=== PATIENT | male | born 1955 | race Caucasian/White ===

== ENCOUNTER 2020-03-23 17:00 | Inpatient (IN) | payer SELFPAY ==
[~2020-03-23] VITALS: Ht 182.9 cm; Wt 99.0 kg
[2020-03-23] VITALS (227 sets, daily range): BP systolic 130–142; BP diastolic 88–103; PULSE 82–92; TEMP 98.1; O2SAT 80–99
[~2020-03-23 17:00] MED LIST: NO HOME MEDICATIONS; PERCOCET 5/321 UDTAB PO
--- NOTE | 2020-03-23 18:36 | NUR ---
Admission assessment completed, alert/oriented, vital signs stable, denies pain or discomfort, stated at [place] when his heart became "slow" he felt a little dizzy/ upon arrival here his heart rate is 70's-80's and still in A/fib, reports he has been feeling more tired lately and was getting SOA with activity and decided to come get checked out, denies any recent travel or sick contacts, denies feeling sick or having a fever, denies any history of arrythmias, stated he was told he has a "minor heart attack" 40 years ago but does not know if he had a heart cath or stress test etc., he reports family history of HTN and stated does not eat the most healthy diet, lungs are CTA/ no resp.difficulty noted at rest, does have some BLE 1+ edema and BNP was elevated on labwork from [place], CT chest done at [facility] and showed pleural effussions and some cardiomegaly, I have notified hospitalist of his arrival to ICU 6, patient denies other needs at this time, we will continue to monitor
[2020-03-23 19:46] LABS: MUCOUS Present /lpf; PH 5 (5-8); SQUAMOUS EPITHELIAL None Seen /hpf; URINE APPEARANCE Clear; URINE BACTERIA None Seen /hpf; URINE BILIRUBIN Negative (NEGATIVE); URINE BLOOD 1+ (NEGATIVE); URINE COLOR Yellow; URINE GLUCOSE Negative (NEGATIVE); URINE KETONE Negative (NEGATIVE); URINE LEUKOCYTE ESTERASE Negative (NEGATIVE); URINE NITRATE Negative (NEGATIVE); URINE PROTEIN(semi-quant) Negative (NEGATIVE); URINE RBC 0-2 /hpf; URINE UROBILINOGEN Negative (NEGATIVE)
[2020-03-23 19:50] LABS: COLLECTION METHOD CLEAN CATCH
--- NOTE | 2020-03-23 22:37 | NUR ---
Oxygen applied at 2114 d/t SpO2 dropping to 88%. Patient states he can feel when he is trying to fall asleep that his lungs "aren't quite clear". Patient accepting of plan of care and use of oxygen throughout the night. 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 O2 at 2LPM via [place]
[2020-03-24] VITALS (442 sets, daily range): BP systolic 130–150; BP diastolic 88–113; PULSE 86–114; TEMP 97.6–98.1; O2SAT 81–100
[2020-03-24 06:25] LABS: ALBUMIN 3.5 gm/dL (3.5-5.0); BILIRUBIN,TOTAL 0.9 mg/dL (0.0-1.0); CALCIUM 8.8 mg/dL (8.4-10.2); CHOLESTEROL RISK RATIO 3.8; CREATININE, serum 0.83 (0.66-1.25); MAGNESIUM 2.1 mg/dL (1.6-2.3); POTASSIUM 4.4 mmol/L (3.4-5.0); TOTAL PROTEIN 6.2 gm/dL (6.4-8.2)
[2020-03-24 06:28] LABS: BASO % 0.4 % (0.0-2.0); EOS # 0.1 (0.0-0.7); EOS % 1.2 % (0-4.0); GRAN % 65.1 % (42.2-75.2); HEMATOCRIT 44.3 % (42.0-52.0); HEMOGLOBIN 14.9 g/dl (13.5-18.0); LYMPH # 2.4 (1.2-3.4); LYMPH % 25.6 % (20.0-51.0); MEAN CELL VOLUME 97 fl (80.0-100.0); MEAN CORPUSCULAR HEMOGLOBIN 33 pg (27.0-31.0); MEAN CORPUSCULAR HGB CONC 34 g/dl (33.0-37.0); MEAN PLATELET VOLUME 11.7 fl (7.4-10.4); MONO # 0.6 (0.1-0.6); PLATELET COUNT 142 K/mm3 (130-400); RED BLOOD COUNT 4.56 M/mm3 (4.20-5.60); REDCELL DISTRIBUTION WIDTH-CV 14.6 % (11.5-14.5)
[2020-03-24 06:40] LABS: TROPONIN-I 0.054 ng/mL (0.000-0.035)
[2020-03-24 06:42] LABS: PROTHROMBIN TIME 11.8 SECONDS (9.7-12.8)
[2020-03-24 06:45] LABS: PARTIAL THROMBOPLASTIN TIME 29.3 SECONDS (26.0-37.0)
--- NOTE | 2020-03-24 08:26 | NUR ---
Report received from Annabelle ACOSTA and care resumed.
--- NOTE | 2020-03-24 09:45 | NUR ---
ERIC met with the patient to discuss discharge plan. The patient lives alone in [place]. His , Louann ([id number]#[phone]), lives in a different house in [place]. She is aware that he is here. The patient reports independence with ADLs and does not have any DME. The patient does not have a PCP. He is self pay. Financial Counseling has been consulted and plans to do a Financial Assistance Application with the patient. He receives his medications at [facility] or [facility]. He has not been taking any medications, so he states he is unaware if he would have any diffculties affording his meds. He works at [employer]. ERIC discussed getting set up with a PCP or clinic for primary care. The patient preferred getting set up at the [facility]. ERIC contacted Rosario at [facility] and provided her with the patient's information. Rosario reports that they have to do a questionnaire with the patient and that she will be contacting him within the next couple of days to do this. She states they cannot set up an appointment for him until two physicians sign off on it. ERIC informed the patient of this. The patient does not have advanced directives completed. The patient plans to return home upon discharge. ERIC contacted and updated the patient's . SW to continue to follow.
--- NOTE | 2020-03-24 14:11 | NUR ---
Dr Diego in to see pt at this time.
--- NOTE | 2020-03-24 17:15 | NUR ---
Patient transfered to room 14, report recieved.
--- NOTE | 2020-03-24 18:27 | NUR ---
Patient doing well, eating dinner at this time. Denies further needs at this time. Will report off to shift supervisor.
[2020-03-25] VITALS (166 sets, daily range): BP systolic 116–138; BP diastolic 73–99; PULSE 19–97; TEMP 97.5–98.6; O2SAT 53–100
[2020-03-25 05:26] LABS: BASO % 0.4 % (0.0-2.0); EOS # 0.1 (0.0-0.7); EOS % 0.9 % (0-4.0); GRAN # 6.2 (1.4-6.5); GRAN % 72.9 % (42.2-75.2); HEMATOCRIT 43.4 % (42.0-52.0); HEMOGLOBIN 14.5 g/dl (13.5-18.0); LYMPH # 1.6 (1.2-3.4); LYMPH % 18.6 % (20.0-51.0); MEAN CELL VOLUME 99 fl (80.0-100.0); MEAN CORPUSCULAR HEMOGLOBIN 33 pg (27.0-31.0); MEAN CORPUSCULAR HGB CONC 33 g/dl (33.0-37.0); MEAN PLATELET VOLUME 11.8 fl (7.4-10.4); MONO # 0.6 (0.1-0.6); MONO % 6.8 % (1.7-9.3); PLATELET COUNT 160 K/mm3 (130-400); RED BLOOD COUNT 4.39 M/mm3 (4.20-5.60); REDCELL DISTRIBUTION WIDTH-CV 14.6 % (11.5-14.5)
[2020-03-25 05:41] LABS: ALBUMIN 3.5 gm/dL (3.5-5.0); BILIRUBIN,TOTAL 0.7 mg/dL (0.0-1.0); CALCIUM 9.1 mg/dL (8.4-10.2); CREATININE, serum 0.99 (0.66-1.25); POTASSIUM 3.9 mmol/L (3.4-5.0); TOTAL PROTEIN 6.1 gm/dL (6.4-8.2)
--- NOTE | 2020-03-25 14:21 | NUR ---
Pt watching tv in bed. No complaints at this time. Call light in reach.
--- NOTE | 2020-03-25 15:51 | NUR ---
Pt positive COVID. Notified Dr Rivers of results. Updated pt on lab results. Vitals signs stable. Pt remains in AFib 90-100s. Pt has no complaints at this time. Call light in reach.
--- NOTE | 2020-03-25 19:30 | NUR ---
Report given to KARLA Mora.
[2020-03-26] VITALS: BP 128/92; PULSE 18
[2020-03-26 04:00] VITALS: BP 113/90; PULSE 86; TEMP 97.5
--- NOTE | 2020-03-26 07:15 | NUR ---
Report received from KARLA Mora. Pt in bed sleeping, will continue to monitor.
--- NOTE | 2020-03-26 07:37 | NUR ---
report given to KARLA Perez.
--- NOTE | 2020-03-26 09:00 | NUR ---
Assessment charted. Pt doing well, resting in bed, denies pain, shortness of breath or other needs. Resting in bed, getting up to use urinal indepenendently. Would like to go home today but unsure of plan. INT to R A/C and LH. Will continue to monitor.
[2020-03-26 09:17] VITALS: BP 129/98; PULSE 90; TEMP 97.9
[2020-03-26] MEDS ORDERED: XARELTO20 MG PO (12:51)
[2020-03-26] MEDS ORDERED: COREG 6.256.25 MG/TA PO (12:52)
[2020-03-26] MEDS ORDERED: PRINIVIL10 MG PO (12:52)
[2020-03-26] MEDS ORDERED: DEMADEX10 MG PO (12:53)
[2020-03-26] MEDS ORDERED: ZOCOR 10MG10 MG PO (12:55)
[2020-03-26 13:55] VITALS: BP 123/86; PULSE 85; TEMP 97.9
--- NOTE | 2020-03-26 14:18 | NUR ---
Discharge teaching completed at this time. Pt received dishcarge packet, reviewed in detail and step by step. Pt questions answered, received scripts and f/u appointments. INTs dc'dx2 tip intact. Pt will be escorted out via w/c by myself with all belongings, will be driven home by , criteria met.
== END 2020-03-26 14:10 | disposition home or self-care (01) | DRG 280 ==
LOC: ICU 17:00 → EU 03-24 17:23
PROVIDERS: Physician Assistant
PROC: 0W993ZZ Drainage of Right Pleural Cavity, Percutaneous Approach (ICD-10-PCS; principal; 2020-03-23)
DX: I48.91 Unspecified atrial fibrillation (principal); I21.A1 Myocardial infarction type 2; I50.21 Acute systolic (congestive) heart failure; U07.1 COVID-19; E87.2 Acidosis; J90 Pleural effusion, not elsewhere classified; I11.0 Hypertensive heart disease with heart failure; R79.89 Other specified abnormal findings of blood chemistry; Z87.891 Personal history of nicotine dependence
CPT/HCPCS: 99223-AI; 99232-AI; 99233-AI; 99239; J1650; J1940; J2405

== ENCOUNTER 2020-04-28 07:23 | Day surgery (SDC) | payer SELFPAY ==
[~2020-04-28] VITALS: Ht 182.9 cm; Wt 94.7 kg
[~2020-04-28 07:23] MED LIST changes: +COREG 6.256.25 MG/TA PO; +DEMADEX10 MG PO; +PRINIVIL10 MG PO; +XARELTO20 MG PO; +ZOCOR 10MG10 MG PO
[2020-04-28] MEDS ORDERED: COREG 6.256.25 MG/TA PO ×2 (07:52→09:14)
[2020-04-28] MEDS ORDERED: XARELTO20 MG PO (07:53)
[2020-04-28] MEDS ORDERED: ZESTRIL 10MG10 MG PO (07:53)
[2020-04-28] MEDS ORDERED: DEMADEX10 MG PO (07:54)
[2020-04-28] MEDS ORDERED: ZOCOR 10MG10 MG PO (07:54)
[2020-04-28 08:24] LABS: HEMATOCRIT 45.1 % (42.0-52.0); HEMOGLOBIN 15.3 g/dl (13.5-18.0); MEAN CELL VOLUME 94 fl (80.0-100.0); MEAN CORPUSCULAR HEMOGLOBIN 32 pg (27.0-31.0); MEAN CORPUSCULAR HGB CONC 34 g/dl (33.0-37.0); MEAN PLATELET VOLUME 10.6 fl (7.4-10.4); PLATELET COUNT 142 K/mm3 (130-400); RED BLOOD COUNT 4.81 M/mm3 (4.20-5.60); REDCELL DISTRIBUTION WIDTH-CV 12.9 % (11.5-14.5)
[2020-04-28 08:34] VITALS: BP 152/81; PULSE 86; TEMP 97.9
[2020-04-28 08:48] LABS: CALCIUM 9.5 mg/dL (8.4-10.2); CREATININE, serum 1.08 (0.66-1.25); MAGNESIUM 2.3 mg/dL (1.6-2.3); POTASSIUM 4.8 mmol/L (3.4-5.0)
[2020-04-28 08:59] LABS: INR 1.6 (0.8-3.0); PROTHROMBIN TIME 17.9 SECONDS (9.7-12.8)
[2020-04-28 09:01] LABS: PARTIAL THROMBOPLASTIN TIME 45.6 SECONDS (26.0-37.0)
[2020-04-28] MEDS ORDERED: PACERONE200 MG PO (09:13)
[2020-04-28 09:18] LABS: THYROID STIMULATING HORMONE 2.4 uIU/mL (0.465-4.680)
--- NOTE | 2020-04-28 09:35 | NUR ---
Patient returned from procedure,report from Priscilla Alanis.
[2020-04-28 09:36] VITALS: BP 106/77; PULSE 67
[2020-04-28 09:40] VITALS: BP 111/72; PULSE 66
[2020-04-28 09:55] VITALS: BP 101/68; PULSE 82
[2020-04-28 10:10] VITALS: BP 117/76; PULSE 60
[2020-04-28] MEDS ORDERED: PRAVACHOL 20MG20 MG PO (10:21)
[2020-04-28 10:25] VITALS: BP 104/67; PULSE 60
--- NOTE | 2020-04-28 11:26 | NUR ---
Discharge instructions given to pt.Pt verbalizes understanding.INT removed,catheter tip intact.Pt escorted out via wheelchair by this nurse.
== END 2020-04-28 12:19 | disposition home or self-care (01) ==
LOC: COL.CAR 07:23
PROVIDERS: Internal Medicine Cardiovascular Disease
DX: I48.91 Unspecified atrial fibrillation (principal); I11.0 Hypertensive heart disease with heart failure; I50.21 Acute systolic (congestive) heart failure; I08.0 Rheumatic disorders of both mitral and aortic valves; I42.9 Cardiomyopathy, unspecified; E78.2 Mixed hyperlipidemia; Z79.01 Long term (current) use of anticoagulants; Z79.899 Other long term (current) drug therapy; Z87.891 Personal history of nicotine dependence
CPT/HCPCS: J0282; J2704; J7060; J7120

== ENCOUNTER 2020-06-07 07:07 | Day surgery (SDC) | payer MEDICARE ==
[~2020-06-07] VITALS: Ht 182.9 cm; Wt 95.0 kg
[~2020-06-07 07:07] MED LIST changes: +PACERONE200 MG PO; +PRAVACHOL 20MG20 MG PO; +ZESTRIL 10MG10 MG PO
[2020-06-07] MEDS ORDERED: PACERONE400 MG PO ×2 (07:52→08:38)
[2020-06-07] MEDS ORDERED: ZOCOR 10MG10 MG PO (07:56)
[2020-06-07 08:07] LABS: HEMATOCRIT 39.3 % (42.0-52.0); HEMOGLOBIN 12.9 g/dl (13.5-18.0); MEAN CELL VOLUME 98 fl (80.0-100.0); MEAN CORPUSCULAR HEMOGLOBIN 32 pg (27.0-31.0); MEAN CORPUSCULAR HGB CONC 33 g/dl (33.0-37.0); MEAN PLATELET VOLUME 10.4 fl (7.4-10.4); PLATELET COUNT 213 K/mm3 (130-400); RED BLOOD COUNT 4.01 M/mm3 (4.20-5.60)
[2020-06-07 08:25] LABS: CREATININE, serum 1.18 (0.66-1.25); POTASSIUM 5.1 mmol/L (3.4-5.0)
[2020-06-07 08:26] LABS: INR 1.7 (0.8-3.0); PROTHROMBIN TIME 19.5 SECONDS (9.7-12.8)
[2020-06-07 08:28] LABS: PARTIAL THROMBOPLASTIN TIME 50.2 SECONDS (26.0-37.0)
[2020-06-07 08:40] VITALS: BP 101/62; PULSE 51
--- NOTE | 2020-06-07 08:40 | NUR ---
received report from Lázaro ACOSTA, pt sits up in bed, alert, no c/o pain or sob. post ekg done for RSR rate in 50's. declined food and drink
[2020-06-07 08:54] LABS: THYROID STIMULATING HORMONE 2.25 uIU/mL (0.465-4.680)
[2020-06-07 09:00] VITALS: BP 107/63; PULSE 55
[2020-06-07 09:15] VITALS: BP 103/66; PULSE 56
--- NOTE | 2020-06-07 09:15 | NUR ---
reviewed discharge inst.with pt on activity, new medication dosages, and followup with Dr Faye with verbal understanding.
[2020-06-07 09:30] VITALS: BP 112/67; PULSE 56
--- NOTE | 2020-06-07 09:40 | NUR ---
iv d'cd intact, pt up in room dressed, gait steady, discharged via w/c to car with
== END 2020-06-07 09:45 | disposition home or self-care (01) ==
LOC: COL.CAR 07:07
PROVIDERS: Internal Medicine Cardiovascular Disease
DX: I48.91 Unspecified atrial fibrillation (principal); Z79.01 Long term (current) use of anticoagulants; I10 Essential (primary) hypertension; Z87.891 Personal history of nicotine dependence
CPT/HCPCS: J2704; J7030